=== PATIENT | female | born 1945 | race African-American/Black ===

== ENCOUNTER → 2021-12-18 | Outpatient (CLI) | payer MEDICARE, MEDICAID ==
[~2021-12-18] MED LIST: BARIUM SULFATE 176 GM SUSP.RECON ONE; EZ-HD SUSPENSION(BARIUM SULFATE 340GM) PO ONE
== END | disposition home or self-care (01) ==
LOC: RAD 10:31
PROVIDERS: ATTEND Hospitalist
DX: R13.19 Other dysphagia (principal)
CPT/HCPCS: 74220